=== PATIENT | male | born 1985 | race African-American/Black ===

== ENCOUNTER 2020-01-12 02:58 | Inpatient (IN) | payer MEDICAID ==
[~2020-01-12] VITALS: Ht 172.7 cm; Wt 66.2 kg
[2020-01-12 04:23] LABS: BASOPHILS % 0.6 % (0.0-2.0); EOSINOPHILS % 0.8 % (0.0-5.0); HEMATOCRIT. 45.7 % (42.0-52.0); LYMPHOCYTES % 35.3 % (20.0-50.0); MEAN CORPUSCULAR VOLUME 91.1 fL (80.0-94.0); MONOCYTES % 6.4 % (2.0-8.0); NEUTROPHILS % 56.9 % (40.0-76.0); RED BLOOD CELL COUNT 5.01 mill/uL (4.7-6.1); RED CELL DISTRIBUTION WIDTH 13.8 % (11.6-14.6)
[2020-01-12 04:32] LABS: CHLORIDE 106 mEq/L (98-107)
[2020-01-12 05:28] LABS: MEAN PLATELET VOLUME 9.6 fl (7.4-10.4)
[2020-01-12 05:31] LABS: PLATELET 216 x1000/uL (130-400)
[2020-01-12] MEDS ORDERED: DIAZEPAM 2 MG TABLET PO ONE (06:00)
[2020-01-12] MEDS ORDERED: IOHEXOL-350 100 ML BOTTLE ONE (06:23)
[2020-01-12] MEDS ORDERED: ENOXAPARIN 60MG/0.6ML SYR SUBCUT ONE (06:45)
[2020-01-12 08:27] LABS: INR 1.1; PARTIAL THROMBOPLASTIN TIME 30.1 sec (23.4-31.0); PROTHROMBIN TIME 11.6 sec (9.6-11.0)
[2020-01-12] MEDS ORDERED: CLONIDINE 0.1MG TABLET PO PRN (12:45)
[2020-01-12] MEDS ORDERED: GUAIFENESIN 200MG/10ML SUGAR FREE UDC PO PRN (12:45)
[2020-01-12] MEDS ORDERED: HYDROCODONE/ACETAMINOPHEN 5/325MG TABLET PO PRN (12:45)
[2020-01-12] MEDS ORDERED: ONDANSETRON HCL 4MG/2ML INJ IV PRN (12:45)
[2020-01-12] MEDS ORDERED: DOCUSATE SODIUM 100MG CAPSULE PO PRN (12:45)
[2020-01-12] MEDS ORDERED: ACETAMINOPHEN 325MG TABLET PO PRN (12:45)
[2020-01-12] MEDS: ENOXAPARIN 80MG/0.8ML SYR SUBCUT SCH (17:34)
[2020-01-12] MEDS ORDERED: POTASSIUM CHLORIDE 20MEQ TABLET SR PO NR (20:00)
[2020-01-12] MEDS: IPRATROPIUM/ALBUTEROL 0.5-3(2.5)MG/3ML NEB HHN PRN (20:37)
[2020-01-12] MEDS: LORAZEPAM 0.5MG TABLET PO PRN (20:54)
[2020-01-12 22:45] VITALS: BP 141/93
[2020-01-13 04:00] VITALS: BP 105/68
[2020-01-13] MEDS: ENOXAPARIN 80MG/0.8ML SYR SUBCUT SCH (05:29)
[2020-01-13 07:46] LABS: EOSINOPHILS % 1.6 % (0.0-5.0); HEMOGLOBIN. 15.4 g/dL (14.0-18.0); LYMPHOCYTES % 40.2 % (20.0-50.0); MEAN CORPUSCULAR HEMOGLOBIN 31.5 pg (28.0-32.0); MEAN CORPUSCULAR VOLUME 92.1 fL (80.0-94.0); MEAN PLATELET VOLUME 10.3 fl (7.4-10.4); NEUTROPHILS % 49.2 % (40.0-76.0); PLATELET 215 x1000/uL (130-400); RED BLOOD CELL COUNT 4.89 mill/uL (4.7-6.1); RED CELL DISTRIBUTION WIDTH 14.1 % (11.6-14.6)
[2020-01-13 08:00] VITALS: BP 107/66
[2020-01-13 08:21] LABS: CHLORIDE 108 mEq/L (98-107)
[2020-01-13 12:00] VITALS: BP 142/89
[2020-01-13 13:06] LABS: *BARBITURATES SCREEN URINE NEGATIVE (NEGATIVE); *BENZODIAZEPINES SCREEN URINE PRESUMTIVE POSITIVE (NEGATIVE)
[2020-01-13 13:07] LABS: *COCAINE SCREEN URINE NEGATIVE (NEGATIVE); CANNABINOID URINE SCREEN PRESUMTIVE POSITIVE (NEGATIVE); METHADONE URINE SCREEN NEGATIVE (NEGATIVE); OPIATES URINE SCREEN NEGATIVE (NEGATIVE); PHENCYCLIDINE URINE SCREEN NEGATIVE (NEGATIVE)
[2020-01-13 13:10] LABS: *AMPHETAMINES SCREEN URINE NEGATIVE (NEGATIVE)
[2020-01-13 14:00] VITALS: BP 131/78
[2020-01-13 16:00] VITALS: BP 130/75
[2020-01-13] MEDS: IPRATROPIUM/ALBUTEROL 0.5-3(2.5)MG/3ML NEB HHN PRN (17:15)
[2020-01-13] MEDS: APIXABAN 5 MG TABLET PO SCH (17:18)
[2020-01-13 20:00] VITALS: BP 136/75
[2020-01-14] VITALS (7 sets, daily range): BP systolic 107–139; BP diastolic 75–94
[2020-01-14] MEDS: APIXABAN 5 MG TABLET PO SCH ×2 (09:37→18:02)
[2020-01-14] MEDS ORDERED: APIX5TAB MT (11:28)
[2020-01-14] MEDS ORDERED: LORA-249 MT ×2 (11:42→11:43)
[2020-01-14] MEDS: LORAZEPAM 0.5MG TABLET PO PRN ×2 (13:31→21:38)
[2020-01-15] VITALS: BP 116/86
[2020-01-15 04:00] VITALS: BP 106/71
[2020-01-15 08:00] VITALS: BP 108/74
[2020-01-15] MEDS: APIXABAN 5 MG TABLET PO SCH (08:11)
[2020-01-15 10:25] VITALS: BP 108/74
[2020-01-20] MEDS ORDERED: APIXABAN 5 MG TABLET PO SCH (17:00)
== END 2020-01-15 13:10 | disposition home or self-care (01) | DRG 134 ==
LOC: ER 02:58 → 7WST 06:41 → ENRESERV 20:23
PROVIDERS: ADMIT Internal Medicine; ATTEND Internal Medicine
DX: I26.99 Other pulmonary embolism without acute cor pulmonale (principal); J96.00 Acute respiratory failure, unspecified whether with hypoxia or hypercapnia; D68.9 Coagulation defect, unspecified; I42.9 Cardiomyopathy, unspecified; I45.81 Long QT syndrome; E87.6 Hypokalemia; F12.10 Cannabis abuse, uncomplicated; D72.829 Elevated white blood cell count, unspecified; F41.9 Anxiety disorder, unspecified; Z80.0 Family history of malignant neoplasm of digestive organs; Z79.01 Long term (current) use of anticoagulants; Z86.73 Personal history of transient ischemic attack (TIA), and cerebral infarction without residual deficits
CPT/HCPCS: 36415; 71045; 71275; 80048; 80053; 80076; 80305; 82248; 83880; 84484; 85025; 93005; 93306; 93970; 94640; 99285; J1650; Q9967